=== PATIENT | male | born 1945 | race Caucasian/White ===

== ENCOUNTER 2022-01-10 08:04 | Day surgery (SDC) | payer MEDICARE ==
[2022-01-06 14:37] VITALS: BMI 24.9
[2022-01-10] MEDS ORDERED: Oxymetazoline HCl 0.05% ( 15 ML ) ONE (08:43)
[2022-01-10] MEDS ORDERED: EPINEPHrine 1 MG/ML AMP ONE (09:56)
[2022-01-10] MEDS ORDERED: Midazolam HCl 2 mg/2 ml Vial ONE (09:59)
[2022-01-10] MEDS ORDERED: Dexamethasone 20 MG/5 ML VIAL ONE (09:59)
[2022-01-10] MEDS ORDERED: Rocuronium Bromide 10 MG/ML (10ML VIAL) ONE ×2 (09:59)
[2022-01-10] MEDS ORDERED: Ondansetron PF 4 MG/2 ML Vial ONE (09:59)
[2022-01-10] MEDS ORDERED: PROPOFOL 20 ML ONE ×2 (09:59→10:30)
[2022-01-10] MEDS ORDERED: Fentanyl 100 MCG/2 ML VIAL ONE ×2 (09:59→11:30)
[2022-01-10] MEDS ORDERED: CEFAZOLIN 1 GM VIAL ONE (10:11)
[2022-01-10] MEDS ORDERED: Lidocaine 1% w/Epinephrine 1:100K 20 ML VIAL ONE (10:32)
[2022-01-10] MEDS ORDERED: Glycopyrrolate 0.2 MG/ML 5 ML SYRINGE ONE (10:49)
[2022-01-10] MEDS ORDERED: PHENYLEPHRINE-NS 100 MCG/ML 10 ML SYRINGE ONE (10:55)
[2022-01-10] MEDS ORDERED: Mupirocin 2% Ointment 22 GM Tube ONE (11:21)
== END 2022-01-10 13:50 | disposition home or self-care (01) ==
LOC: CSHSDC 08:04
PROVIDERS: ATTEND Otolaryngology Otolaryngic Allergy
PROC: 0CBM8ZX Excision of Pharynx, Via Natural or Artificial Opening Endoscopic, Diagnostic (ICD-10-PCS; principal; 2022-01-10)
PROC: 09BN8ZX Excision of Nasopharynx, Via Natural or Artificial Opening Endoscopic, Diagnostic (ICD-10-PCS; 2022-01-10)
PROC: 0BJ08ZZ Inspection of Tracheobronchial Tree, Via Natural or Artificial Opening Endoscopic (ICD-10-PCS; 2022-01-10)
PROC: 0HX1XZZ Transfer Face Skin, External Approach (ICD-10-PCS; 2022-01-10)
DX: C44.319 Basal cell carcinoma of skin of other parts of face (principal); R59.0 Localized enlarged lymph nodes; R04.0 Epistaxis; I10 Essential (primary) hypertension; F41.9 Anxiety disorder, unspecified; Z79.899 Other long term (current) drug therapy; Z20.822 Contact with and (suspected) exposure to COVID-19
CPT/HCPCS: 88305; 88331; 88332; J0171; J0690; J1100; J2250; J2405; J2704; J3010